=== PATIENT | male | born 1940 | race Caucasian/White ===

== ENCOUNTER 2019-06-05 01:06 | Inpatient (IN) | payer OTHER ==
[2019-06-05] MEDS ORDERED: PROVENTIL IH ONE ×2 (01:20→01:22)
--- NOTE | 2019-06-05 01:28 | Emergency Department Report ---
ED General Adult HPI - General Chief complaint: Abdominal Pain Stated complaint: SOB Time Seen by Provider: 06/05/19 01:25 Source: EMS Mode of arrival: Stretcher Limitations: Language Barrier - History of Present Illness Initial comments: 78-year-old male with history of diabetes and hypertension and pacemaker placement presents with complaint of abdominal pain. Patient also has secondary complaint of shortness of breath. 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 Family also describes orthopnea. Patient has had a dry nonproductive cough. Patient also complains of abdominal pain. Patient also has a history of prostate cancer. Patient complains of dysuria. Patient was brought in by EMS was noted to be 91% on a nonrebreather. 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 Patient is currently on Xarelto therapy as well. - Related Data Allergies Allergy/AdvReac Type Severity Reaction Status Date / Time No Known Allergies Allergy Verified 06/05/19 01:32 ED Review of Systems ROS: Stated complaint: SOB Other details as noted in HPI Constitutional: denies: chills, fever Eyes: denies: eye pain, eye discharge, vision change ENT: denies: ear pain, throat pain Respiratory: denies: cough, shortness of breath, wheezing Cardiovascular: denies: chest pain, palpitations Endocrine: no symptoms reported Gastrointestinal: abdominal pain Genitourinary: denies: urgency, dysuria Musculoskeletal: denies: back pain, joint swelling, arthralgia Skin: denies: rash, lesions Neurological: denies: headache, weakness, paresthesias Psychiatric: denies: anxiety, depression Hematological/Lymphatic: denies: easy bleeding, easy bruising ED Past Medical Hx - Past Medical History Previous Medical History?: Yes Hx Hypertension: Yes Hx Diabetes: Yes - Surgical History Past Surgical History?: Yes Additional Surgical History: pacemaker - Social History Smoking Status: Never Smoker ED Physical Exam - General Limitations: Language Barrier General appearance: alert, other (uncomfortable; dehydrated) - Head Head exam: Present: atraumatic, normocephalic - Eye Eye exam: Present: normal appearance - ENT ENT exam: Present: mucous membranes dry - Neck Neck exam: Present: normal inspection - Respiratory Respiratory exam: Present: rales. Absent: respiratory distress - Cardiovascular Cardiovascular Exam: Present: regular rate, normal rhythm. Absent: systolic murmur, diastolic murmur, rubs, gallop - GI/Abdominal GI/Abdominal exam: Present: soft, tenderness (noted diffusely), normal bowel sounds. Absent: guarding, rebound - Rectal Rectal exam: Present: deferred - Extremities Exam Extremities exam: Present: normal inspection - Back Exam Back exam: Present: normal inspection - Neurological Exam Neurological exam: Present: alert, oriented X3 - Psychiatric Psychiatric exam: Present: normal affect, normal mood - Skin Skin exam: Present: warm, dry, intact, normal color. Absent: rash ED Course Vital Signs 06/05/19 06/05/19 06/05/19 00:50 01:00 01:09 Temperature 99.1 F Pulse Rate 77 82 83 Pulse Rate [ Anterior] Respiratory 38 H 39 H 20 Rate Respiratory Rate [Anterior] Blood Pressure 186/105 O2 Sat by Pulse 74 L 89 92 Oximetry 06/05/19 06/05/19 06/05/19 01:30 01:33 01:37 Temperature Pulse Rate 85 79 Pulse Rate [ 79 Anterior] Respiratory 34 H 32 H Rate Respiratory 32 H Rate [Anterior] Blood Pressure 158/93 176/103 O2 Sat by Pulse 95 100 Oximetry 06/05/19 06/05/19 06/05/19 02:01 02:31 03:01 Temperature Pulse Rate 83 75 78 Pulse Rate [ Anterior] Respiratory 30 H 26 H 28 H Rate Respiratory Rate [Anterior] Blood Pressure 176/103 176/103 176/103 O2 Sat by Pulse 100 100 97 Oximetry 06/05/19 04:37 Temperature Pulse Rate 83 Pulse Rate [ Anterior] Respiratory 22 Rate Respiratory Rate [Anterior] Blood Pressure O2 Sat by Pulse 96 Oximetry ED Medical Decision Making - Lab Data Result diagrams: 06/05/19 01:36 06/05/19 01:36 - EKG Data -: EKG Interpreted by Vt EKG shows normal: sinus rhythm Rate: normal - EKG Data Interpretation: other (Left bundle branch block) - Medical Decision Making Upon arrival in emergency Department patient received BiPAP therapy as well as albuterol any improvement of his aeration. Patient also received Lasix therapy and nitroglycerin therapy sublingually while in the emergency department. Patient to be admitted to the hospitalist service for continued management and treatment. - Differential Diagnosis Arrythmia; NSTEMI; STEMI; Anemia Critical Care Time: Yes Critical care time in (mins) excluding proc time.: 40 Critical care attestation.: If time is entered above; I have spent that time in minutes in the direct care of this critically ill patient, excluding procedure time. Critical Care time does not include time spent on separately billable procedures. Critical Care time includes time spent on direct bedside care, frequent reassessments, and physician consultation. ED Disposition Clinical Impression: CHF exacerbation, Prostatic hypertrophy, Acute pulmonary edema, Hydroureteronephrosis Disposition: OP ADMIT IP TO THIS HOSP Is pt being admited?: Yes Does the pt Need Aspirin: No Condition: Fair Instructions: Pulmonary Edema (ED) Time of Disposition: 05:11
[2019-06-05 01:59] LABS: Basophils % (Auto) 0.3 % (0.0-1.8); Eosinophils # (Auto) 0.1 K/mm3 (0.0-0.4); Eosinophils % (Auto) 1.1 % (0.0-4.3); Hemoglobin 10.9 gm/dl (11.8-15.2); Lymphocytes # (Auto) 1.8 K/mm3 (1.2-5.4); Lymphocytes % (Auto) 22.8 % (13.4-35.0); Mean Corpuscular HGB Conc 32 % (32-34); Mean Corpuscular Volume 75 fl (84-94); Monocytes # (Auto) 0.6 K/mm3 (0.0-0.8); Monocytes % (Auto) 7.3 % (0.0-7.3); Platelet Count 205 K/mm3 (140-440); Red Blood Count 4.52 M/mm3 (3.65-5.03); Red Cell Distribution Width 18.3 % (13.2-15.2)
[2019-06-05 02:05] LABS: Calcium 9.3 mg/dL (8.4-10.2)
--- NOTE | 2019-06-05 02:22 | XRay Report ---
CHEST 1 VIEW 06/05/2019 1:24 AM INDICATION / CLINICAL INFORMATION: Chest Pain. COMPARISON: None available. FINDINGS: SUPPORT DEVICES: A dual lead left pacemaker is in good position. HEART / MEDIASTINUM: No significant abnormality. LUNGS / PLEURA: There is a small to moderate right pleural effusion and a small left pleural effusion with associated atelectasis. There is probable mild pulmonary edema. No pneumothorax. ADDITIONAL FINDINGS: No significant additional findings. IMPRESSION: Bilateral pleural effusions, right greater than left, with associated atelectasis and probable mild p ulmonary edema. Signer Name: Henri Ramirez MD Signed: 06/05/2019 2:17 AM Workstation Name: [id number]
[2019-06-05] MEDS ORDERED: NITROSTAT SL STA (02:54)
[2019-06-05] MEDS ORDERED: LASIX IV ONE (02:54)
--- NOTE | 2019-06-05 03:56 | Cat Scan Report ---
CT ABDOMEN AND PELVIS WITHOUT CONTRAST HISTORY: Generalized abdominal pain and distention. COMPARISON: No relevant prior imaging study available. TECHNIQUE: Axial, coronal and sagittal CT imaging of the abdomen and pelvis was performed without co ntrast. Lack of intravenous contrast limits evaluation of the vascular and solid organs. All CT sca ns at this location are performed using CT dose reduction for ALARA by means of automated exposure co ntrol. FINDINGS: LOWER CHEST: There is a small to moderate right pleural effusion and a small left pleural effusion wi th associated atelectasis. The heart is mildly to moderately enlarged without a pericardial effusion. Pacing leads are partially visualized and appear unremarkable. LIVER: Mildly enlarged with a probable cyst located posteriorly and inferiorly along the right hepati c lobe measuring 1 cm. No additional significant abnormality. BILIARY: No significant abnormality. PANCREAS: No significant abnormality. SPLEEN: Normal in size with an indeterminate hypodensity along the upper pole measuring 1.1 cm on anita ge 41 of series 301. ADRENALS: No significant abnormality. KIDNEYS AND URETERS: Moderate to severe hydroureteronephrosis is noted bilaterally without an obstruc tive mass or stone. There is a probable simple appearing cyst along the left lower renal pole posteri porfirio measuring up to 2.3 cm. GI TRACT: No significant abnormality of the stomach or small bowel. There is generalized colonic dive rticulosis without evidence of diverticulitis. Unremarkable appendix. PERITONEUM: No free fluid. No free air. No fluid collection. LYMPH NODES: No significant adenopathy. VASCULATURE: The aorta is normal in caliber with mild aortoiliac atherosclerosis. URINARY BLADDER: Severely distended without an intraluminal abnormality. REPRODUCTIVE ORGANS: The prostate gland is enlarged and measures 5.4 x 5.3 cm. ADDITIONAL FINDINGS: None. SKELETAL SYSTEM: There are degenerative changes of the spine. No acute abnormality is seen. IMPRESSION: 1. Moderate to severe hydroureteronephrosis in the setting of marked bladder distention likely repres ents bladder outlet obstruction, possibly due to prostatic hypertrophy. 2. Additional findings as above. Signer Name: Henri Ramirez MD Signed: 06/05/2019 3:51 AM Workstation Name: [id number]
[2019-06-05 04:23] LABS: Bacteria,Urine 1+ /HPF (Negative); Bilirubin,Urine NEG (Negative); Blood,Urine NEG (Negative); Color,Urine Straw (Yellow); Protein,Urine <15 mg/dL mg/dL (Negative); RBC,Urine < 1.0 /HPF (0.0-6.0); Urobilinogen,Urine < 2.0 mg/dL (<2.0); WBC,Urine < 1.0 /HPF (0.0-6.0)
[2019-06-05] MEDS ORDERED: D50W (25GM) Syringe IV PRN (07:00)
[2019-06-05] MEDS ORDERED: TYLENOL PO PRN (07:02)
[2019-06-05] MEDS ORDERED: NITROSTAT SL PRN (07:02)
[2019-06-05] MEDS ORDERED: ZOFRAN IV PRN (07:16)
[2019-06-05] MEDS ORDERED: MORPHINE IV PRN (07:17)
[2019-06-05] MEDS: DUONEB *Not for PRN Use IH SCH ×4 (07:45→19:41)
--- NOTE | 2019-06-05 09:22 | History and Physical Report ---
CHIEF COMPLAINT: Shortness of breath. HISTORY OF PRESENT ILLNESS: The patient is a 78-year-old male who is visiting [place] from [place] of the country and has shortness of breath going on for few days. There is associated history of orthopnea and history of nonproductive cough. The patient also complained about abdominal pain and difficulty urinating. There was no history of fever or chills and no history of nausea or vomiting. The patient also denied history of chest pain and was brought by EMS with O2 sat running about 91% on nonrebreather. The patient was evaluated at a hospital in [place], [place] where he had a pacemaker placed due to third degree heart block and also the patient was started on Xarelto because of irregular heartbeat, but the patient's family say that they moved over to [place] nearly and the patient's symptoms just started. PAST MEDICAL HISTORY: Pertinent for hypertension, diabetes mellitus, third degree heart block and benign prostatic hypertrophy. PAST SURGICAL HISTORY: Pertinent for pacemaker placement. FAMILY HISTORY: Noncontributory. SOCIAL HISTORY: The patient does not smoke, does not drink alcohol and does not use illicit drugs. MEDICATIONS: The patient's home medications are not known at this time. ALLERGIES: There are no known drug allergies. REVIEW OF SYSTEMS: CONSTITUTIONAL: There is no fever, no chills, no diaphoresis. HEENT: There is no headache or sore throat. CARDIOVASCULAR SYSTEM: There is no chest pain, but there is orthopnea. RESPIRATORY SYSTEM: There is shortness of breath and there is dry cough. GASTROINTESTINAL SYSTEM: There is no nausea, no vomiting, no abdominal pain, diarrhea or constipation. NEUROLOGICAL SYSTEM: There is no numbness, no dizziness, no altered mental status. MUSCULOSKELETAL SYSTEM: There is no joint pain or swelling. DERMATOLOGICAL SYSTEM: There is no skin rash or itching. GENITOURINARY SYSTEM: There is history of painful micturition and dysuria, but no hematuria or flank pain. Rest of system review is normal. PHYSICAL EXAMINATION: GENERAL: At the time of exam, the patient was found to be alert, oriented x 3 and in mild to moderate distress due to shortness of breath. VITAL SIGNS: At the initial time of presentation showed temperature of 99.1 degrees Fahrenheit, pulse of 77, respiration 38, blood pressure 186/105. Initial O2 sat of 74%, which later came on to 97%-100% on oxygen on BiPAP. HEENT: Showed pupils to be equal, round, reactive to light and accommodating. The patient has a BiPAP mask in place. NECK: Supple with no JVD or carotid bruit. CARDIOVASCULAR SYSTEM: Showed first and second heart sounds with irregularly irregular rhythm. RESPIRATORY SYSTEM: Showed reduced air entry on both sides of the lung with bibasilar rales. GASTROINTESTINAL SYSTEM: Showed abdomen to be full, soft, nontender with no organomegaly or rigidity. NEUROLOGICAL: Showed no focal deficit. MUSCULOSKELETAL SYSTEM: Showed no joint swelling or tenderness. DERMATOLOGICAL SYSTEM: Showed no skin rash. GENITOURINARY SYSTEM: Showing no costovertebral angle tenderness. PERTINENT LABORATORY DATA AND IMAGING STUDIES: The patient had chest x-ray done that shows bilateral pleural effusion with right greater than left with associated atelectasis and mild pulmonary edema. The patient has also CT of the abdomen and pelvis without contrast and shows moderate to severe hydroureteronephrosis in the setting of marked bladder distension likely representing bladder outlet obstruction possibly due to prostatic hypertrophy according to the radiologist. The patient has CBC done with normal white count, low hemoglobin of 10.9 and low hematocrit of 34 with low MCV of 75 with rest of CBC being unremarkable. The patient's chemistry showed elevated glucose level of 291 with elevated total CPK of 438 and normal troponin level and high brain natriuretic peptide level of 6215. The patient's urinalysis was unremarkable. DIAGNOSES: 1. Congestive heart failure. 2. Bladder outlet obstruction due to benign prostatic hyperplasia. PLAN OF CARE: 1. The patient will be admitted to telemetry as inpatient. 2. The patient will have cardiac enzyme including troponin and total CPK and CK-MB checked every 6 hours x 2 more levels. 3. The patient will have Cardiology consult with Dr. Karan Bellamy for management of CHF in the setting of pacemaker placement. 4. The patient will be on IV Lasix 40 mg daily. 5. The patient will be on nitro paste half inch to the anterior chest wall q.i.d. and will also be on Nitrostat 0.4 mg every 5 minutes as needed for breakthrough chest pain. 6. The patient will be on Accu-Chek a.c. and at bedtime followed by low-dose sliding scale using regular insulin coverage. 7. The patient will be on DuoNeb nebulizer q.i.d. 8. The patient will be on Tylenol 650 mg by mouth every 4 hours as needed for fever and headache. 9. The patient will be on IV Zofran 4 mg every 8 hours as needed for nausea and vomiting and IV morphine 2 mg every 4 hours as needed for pain. 10. The patient will continue BiPAP that was started in the Emergency Room until reviewed by the attending physician. 11. The patient's diet will be consistent carbohydrate and 2 g sodium diet. 12. The patient will be on heparin 5000 units subcutaneous q. 12 hours for DVT prophylaxis. 13. Patient needs urology consult but there is no urology consult over the weekend JOB# [id number] OCN/TRACEY IZAGUIRRE
[2019-06-05] MEDS ORDERED: ZESTRIL PO SCH (10:00)
[2019-06-05] MEDS: HumuLIN R SUB-Q SCH ×4 (10:41→21:55)
[2019-06-05] MEDS: NITRO-BID 2% TP SCH ×3 (10:57→19:38)
--- NOTE | 2019-06-05 11:30 | Consultation ---
History of Present Illness Consult date: 06/05/19 Consult reason: congestive heart failure History of present illness: The patient is a 78-year-old man who is here visiting from [facility]. He has a history of chronic hypertension, admittedly poorly controlled on hydrochlorothiazide, amlodipine and losartan. He has a history of syncope and heart block, treated a year ago in [facility] with a dual chamber pacemaker. No history of coronary artery disease, myocardial infarction all previous congestive heart failure. He presents to the hospital now with shortness of breath and uncontrolled hypertension. Blood pressure was 186/105. Chest x-ray demonstrated moderate in terstitial edema, moderate to large right pleural effusion. There is no chest pain, no palpitations, no syncope. ECG is interventricular paced rhythm. Past History Past Medical History: hypertension Past Surgical History: Other (pacemaker) Medications and Allergies Allergies Allergy/AdvReac Type Severity Reaction Status Date / Time No Known Allergies Allergy Verified 06/05/19 01:32 Active Meds: Active Medications Acetaminophen (Tylenol) 650 mg PO Q4H PRN PRN Reason: Headache Albuterol/Ipratropium (Duoneb *Not For Prn Use*) 1 ampul IH QIDRT [facility] Last Admin: 06/05/19 07:45 Dose: 1 ampul Documented by: Dextrose (D50w (25gm) Syringe) 50 ml IV PRN PRN PRN Reason: Hypoglycemia Furosemide (Lasix) 40 mg IV QDAY [facility] Heparin Sodium (Porcine) (Heparin) 5,000 unit SUB-Q Q12HR [facility] Insulin Human Regular (Humulin R) 0 units SUB-Q BAIRON; Protocol Last Admin: 06/05/19 10:41 Dose: 4 units Documented by: Insulin Human Regular (Humulin R) 0 units SUB-Q QHS [facility]; Protocol Lisinopril (Zestril) 5 mg PO QDAY [facility] Last Admin: 06/05/19 10:57 Dose: 5 mg Documented by: Morphine Sulfate (Morphine) 2 mg IV Q4H PRN PRN Reason: Pain, Moderate (4-6) Nitroglycerin (Nitro-Bid 2%) 0.5 inch TP QIDNTG BAIRON; Protocol Last Admin: 06/05/19 10:57 Dose: 0.5 inch Documented by: Nitroglycerin (Nitrostat) 0.4 mg SL .Q5MIN PRN PRN Reason: Chest Pain Ondansetron HCl (Zofran) 4 mg IV Q8H PRN PRN Reason: Nausea And Vomiting Review of Systems Cardiovascular: shortness of breath, no chest pain, no orthopnea, no palpitations, no rapid/irregular heart beat, no edema, no syncope, no lightheadedness Physical Examination Vital Signs Pulse Resp Pulse Ox 77 38 H 74 L 06/05/19 00:50 06/05/19 00:50 06/05/19 00:50 General appearance: no acute distress HEENT: Positive: PERRL Neck: Positive: neck supple Cardiac: Positive: Reg Rate and Rhythm Lungs: Positive: Decreased Breath Sounds Neuro: Positive: Grossly Intact Abdomen: Positive: Soft Male genitourinary: Positive: deferred Skin: Positive: Clear Extremities: Absent: edema Results 06/05/19 01:36 06/05/19 01:36 CBC 06/05/19 Range/Units 01:36 WBC 7.8 (4.5-11.0) K/mm3 RBC 4.52 (3.65-5.03) M/mm3 Hgb 10.9 L (11.8-15.2) gm/dl Hct 34.0 L (35.5-45.6) % Plt Count 205 (140-440) K/mm3 Lymph # 1.8 (1.2-5.4) K/mm3 Andrews # 0.6 (0.0-0.8) K/mm3 Eos # 0.1 (0.0-0.4) K/mm3 Baso # 0.0 (0.0-0.1) K/mm3 Comprehensive Metabolic Panel 06/05/19 Range/Units 01:36 Sodium 143 (137-145) mmol/L Potassium 3.7 (3.6-5.0) mmol/L Chloride 104.8 (98-107) mmol/L Carbon Dioxide 24 (22-30) mmol/L BUN 11 (9-20) mg/dL Creatinine 1.5 (0.8-1.5) mg/dL Glucose 291 H (75-100) mg/dL Calcium 9.3 (8.4-10.2) mg/dL EKG interpretations - Telemetry EKG Rhythm: Paced Assessment and Plan - Patient Problems (1) Acute pulmonary edema Current Visit: Yes Status: Acute Plan to address problem: Patient's heart failure extubation will be treated with diuretics, an echocardiogram for left ventricular function assessment. Probable etiology of heart failure is chronic uncontrolled hypertension. A predischarge Persantin thallium stress test will be indicated for ischemia assessment once heart failure, pleural effusion resolved. (2) Pleural effusion Current Visit: Yes Status: Acute Plan to address problem: Recommend pulmonary evaluation and assessment of right pleural effusion. (3) Cardiac pacemaker Current Visit: Yes Status: Acute Plan to address problem: We will get the pacemaker interrogation with [facility] on Friday. (4) Uncontrolled hypertension Current Visit: Yes Status: Acute Plan to address problem: Aggressive blood pressure management, with diuretics, losartan, switch amlodipine to Procardia XL for better efficacy. Additional medications as indicated after LV function assessment by echocardiogram.
[2019-06-05 13:08] LABS: Creatine Kinase MB 3.2 ng/mL (0.0-4.0)
[2019-06-05] MEDS: HEPARIN SUB-Q SCH ×2 (13:53→21:54)
--- NOTE | 2019-06-05 14:21 | Event Note ---
Date: 06/05/19 Patient is 78 yo with abdominal pain, CHF, Urinary retention s/p parnell placed, pleural effusion. I have seen and examined him.
[2019-06-05] MEDS: COZAAR PO SCH (14:31)
[2019-06-05] MEDS: PROCARDIA XL PO SCH (14:33)
[2019-06-05 19:26] LABS: Creatine Kinase MB 2.8 ng/mL (0.0-4.0)
[2019-06-05] MEDS: ROBITUSSIN PO PRN (20:15)
[2019-06-06] MEDS: NITRO-BID 2% TP SCH ×4 (05:32→17:32)
[2019-06-06 06:02] LABS: Hematocrit 34.2 % (35.5-45.6); Hemoglobin 11.1 gm/dl (11.8-15.2); Mean Corpuscular HGB Conc 33 % (32-34); Mean Corpuscular Volume 74 fl (84-94); Platelet Count 220 K/mm3 (140-440); Red Blood Count 4.64 M/mm3 (3.65-5.03); Red Cell Distribution Width 17.8 % (13.2-15.2)
[2019-06-06 06:33] LABS: Calcium 9.6 mg/dL (8.4-10.2)
[2019-06-06] MEDS ORDERED: K-DUR PO NR (06:53)
--- NOTE | 2019-06-06 06:56 | Event Note ---
Date: 06/06/19 Potassium 2.7 this morning. Ordered IV potassium 20Meq, and po Potassium 40Meq. Will need to follow up potassium and magnesium labs.
[2019-06-06] MEDS: HumuLIN R SUB-Q SCH ×4 (07:30→22:43)
[2019-06-06] MEDS: DUONEB *Not for PRN Use IH SCH ×4 (08:06→20:00)
[2019-06-06] MEDS: COZAAR PO SCH (09:41)
[2019-06-06] MEDS: PROCARDIA XL PO SCH (09:42)
[2019-06-06] MEDS: LASIX IV SCH (09:42)
[2019-06-06] MEDS: HEPARIN SUB-Q SCH ×2 (09:44→22:41)
[2019-06-06] MEDS: KCL 10MEQ/100ML 10 MEQ/100 ML BAG IV SCH ×2 (10:10→11:18)
[2019-06-06] MEDS ORDERED: PNEUMOVAX 23 IM ONE (12:00)
--- NOTE | 2019-06-06 12:38 | Progress Note ---
Assessment and Plan Assessment and plan: Acute resp failure due to pulmonary edema and pleural effusions Supplemental Oxygen Consult Pulmunology Acute systolic CHF EF 35-40% Cardiology following Alexx Gomez Bilateral pleural effusion R > L May be due to CHF Consult Pulm, Cardiology Urinary retention due to BPH Francois placed in ED Will consult Urology Marked hydroureteronephosis and bladder distension on CT Abd Hydroureteronephrosis Will consult Urology History of 3rd degree AV block s/p pacemaker placement Hypokalemia replace and recheck Hypertension monitor BP Full code status History Interval history: Shortness of breath Abdominal pain Hospitalist Physical - Physical exam Narrative exam: Gen: Not in acute distress, lying in bed, HEENT: Normocephalic, atraumatic Neck: supple, no JVD Heart: S1 and S2 reg, no murmurs, rubs or gallop Lungs: Bilateral basal crackles, decreased breath sound bases Abd: soft, non tender, non distended, normal BS Ext: no edema, no clubbing, no cyanosis Neuro: Awake,alert,oriented,moves all ext : Francois catheter in - Constitutional Vitals: Temp Pulse Resp BP Pulse Ox 98.0 F 68 20 125/67 94 06/06/19 04:14 06/06/19 10:00 06/06/19 08:10 06/06/19 05:32 06/06/19 09:57 General appearance: Present: no acute distress Results - Labs CBC & Chem 7: 06/06/19 04:46 06/06/19 04:46 Labs: Laboratory Last Values WBC 7.2 K/mm3 (4.5-11.0) 06/06/19 04:46 RBC 4.64 M/mm3 (3.65-5.03) 06/06/19 04:46 Hgb 11.1 gm/dl (11.8-15.2) L 06/06/19 04:46 Hct 34.2 % (35.5-45.6) L 06/06/19 04:46 MCV 74 fl (84-94) L 06/06/19 04:46 MCH 24 pg (28-32) L 06/06/19 04:46 MCHC 33 % (32-34) 06/06/19 04:46 RDW 17.8 % (13.2-15.2) H 06/06/19 04:46 Plt Count 220 K/mm3 (140-440) 06/06/19 04:46 Lymph % (Auto) 22.8 % (13.4-35.0) 06/05/19 01:36 Cache % (Auto) 7.3 % (0.0-7.3) 06/05/19 01:36 Eos % (Auto) 1.1 % (0.0-4.3) 06/05/19 01:36 Baso % (Auto) 0.3 % (0.0-1.8) 06/05/19 01:36 Lymph # 1.8 K/mm3 (1.2-5.4) 06/05/19 01:36 Cache # 0.6 K/mm3 (0.0-0.8) 06/05/19 01:36 Eos # 0.1 K/mm3 (0.0-0.4) 06/05/19 01:36 Baso # 0.0 K/mm3 (0.0-0.1) 06/05/19 01:36 Seg Neutrophils % 68.5 % (40.0-70.0) 06/05/19 01:36 Seg Neutrophils # 5.3 K/mm3 (1.8-7.7) 06/05/19 01:36 Sodium 143 mmol/L (137-145) 06/06/19 04:46 Potassium 2.7 mmol/L (3.6-5.0) L* D 06/06/19 04:46 Chloride 100.6 mmol/L (98-107) 06/06/19 04:46 Carbon Dioxide 27 mmol/L (22-30) 06/06/19 04:46 18 mmol/L 06/06/19 04:46 BUN 18 mg/dL (9-20) 06/06/19 04:46 1.3 mg/dL (0.8-1.5) 06/06/19 04:46 Estimated GFR 54 ml/min 06/06/19 04:46 14 % 06/06/19 04:46 Glucose 138 mg/dL (75-100) H 06/06/19 04:46 POC Glucose 264 (70-105) H 06/06/19 11:41 Calcium 9.6 mg/dL (8.4-10.2) 06/06/19 04:46 446 units/L (55-170) H 06/05/19 18:28 CK-MB (CK-2) 2.8 ng/mL (0.0-4.0) 06/05/19 18:28 CK-MB (CK-2) Rel Index 0.6 (0-4) 06/05/19 18:28 0.013 ng/mL (0.00-0.029) 06/05/19 18:28 NT-Pro-B Natriuret Pep 6215 pg/mL (0-900) H 06/05/19 03:00 Straw (Yellow) 06/05/19 03:30 Clear (Clear) 06/05/19 03:30 5.0 (5.0-7.0) 06/05/19 03:30 Ur Specific [place]es 1.008 (1.003-1.030) 06/05/19 03:30 <15 mg/dl mg/dL (Negative) 06/05/19 03:30 50 mg/dL (Negative) 06/05/19 03:30 Neg mg/dL (Negative) 06/05/19 03:30 Neg (Negative) 06/05/19 03:30 Neg (Negative) 06/05/19 03:30 Neg (Negative) 06/05/19 03:30 < 2.0 mg/dL (<2.0) 06/05/19 03:30 Ur Leukocyte Esterase Neg (Negative) 06/05/19 03:30 < 1.0 /HPF (0.0-6.0) 06/05/19 03:30 < 1.0 /HPF (0.0-6.0) 06/05/19 03:30 U Epithel Cells (Auto) < 1.0 /HPF (0-13.0) 06/05/19 03:30 1+ /HPF (Negative) 06/05/19 03:30 Active Medications - Current Medications Current Medications: Generic Name Dose Route Start Last Admin Trade Name Freq PRN Reason Stop Dose Admin Acetaminophen 650 mg 06/05/19 07:02 Tylenol PO Q4H PRN Headache Albuterol/Ipratropium 1 ampul 06/05/19 08:00 06/06/19 08:06 Duoneb *Not For Prn Use* IH 1 ampul QIDRT [facility] Administration Dextrose 50 ml 06/05/19 07:00 D50w (25gm) Syringe IV PRN PRN Hypoglycemia Furosemide 40 mg 06/06/19 10:00 06/06/19 09:42 Lasix IV 40 mg QDAY [facility] Administration Guaifenesin 200 mg 06/05/19 19:59 06/05/19 20:15 Robitussin PO 200 mg Q4H PRN Administration Cough Heparin Sodium (Porcine) 5,000 unit 06/05/19 10:00 06/06/19 09:44 Heparin SUB-Q 5,000 unit Q12HR [facility] Administration Insulin Human Regular 0 units 06/05/19 07:30 06/06/19 07:30 Humulin R SUB-Q 1 units AC [facility] Administration Protocol Insulin Human Regular 0 units 06/05/19 22:00 06/05/19 21:55 Humulin R SUB-Q 3 units QHS [facility] Administration Protocol Losartan Potassium 100 mg 06/05/19 12:00 06/06/19 09:41 Cozaar PO 100 mg QDAY [facility] Administration Morphine Sulfate 2 mg 06/05/19 07:17 Morphine IV Q4H PRN Pain, Moderate (4-6) Nifedipine 60 mg 06/05/19 12:00 06/06/19 09:42 Procardia Xl PO 60 mg QDAY [facility] Administration Nitroglycerin 0.5 inch 06/05/19 10:00 06/06/19 09:42 Nitro-Bid 2% TP 0.5 inch QIDNTG [facility] Administration Protocol Nitroglycerin 0.4 mg 06/05/19 07:02 Nitrostat SL .Q5MIN PRN Chest Pain Ondansetron HCl 4 mg 06/05/19 07:16 Zofran IV Q8H PRN Nausea And Vomiting
--- NOTE | 2019-06-06 14:18 | Consultation ---
History of Present Illness Consult date: 06/06/19 Requesting physician: MELA ANDRES Reason for consult: pleural effusion History of present illness: 78 y/o male presents with abdominal distention and abdominal pain. CT abd shows bilateral hydronephrosis and right sided pleural effusion. Parnell placed and 1900 came back immediately. Pulmonary asked to see because of effusion. Past History Past Medical History: hypertension Past Surgical History: Other (pacemaker) Medications and Allergies Allergies Allergy/AdvReac Type Severity Reaction Status Date / Time No Known Allergies Allergy Verified 06/05/19 01:32 Active Meds: Active Medications Acetaminophen (Tylenol) 650 mg PO Q4H PRN PRN Reason: Headache Albuterol/Ipratropium (Duoneb *Not For Prn Use*) 1 ampul IH QIDRT [facility] Last Admin: 06/06/19 08:06 Dose: 1 ampul Documented by: Dextrose (D50w (25gm) Syringe) 50 ml IV PRN PRN PRN Reason: Hypoglycemia Furosemide (Lasix) 40 mg IV QDAY [facility] Last Admin: 06/06/19 09:42 Dose: 40 mg Documented by: Guaifenesin (Robitussin) 200 mg PO Q4H PRN PRN Reason: Cough Last Admin: 06/05/19 20:15 Dose: 200 mg Documented by: Heparin Sodium (Porcine) (Heparin) 5,000 unit SUB-Q Q12HR [facility] Last Admin: 06/06/19 09:44 Dose: 5,000 unit Documented by: Insulin Human Regular (Humulin R) 0 units SUB-Q AC [facility]; Protocol Last Admin: 06/06/19 12:47 Dose: 3 units Documented by: Insulin Human Regular (Humulin R) 0 units SUB-Q QHS [facility]; Protocol Last Admin: 06/05/19 21:55 Dose: 3 units Documented by: Losartan Potassium (Cozaar) 100 mg PO QDAY [facility] Last Admin: 06/06/19 09:41 Dose: 100 mg Documented by: Morphine Sulfate (Morphine) 2 mg IV Q4H PRN PRN Reason: Pain, Moderate (4-6) Nifedipine (Procardia Xl) 60 mg PO QDAY [facility] Last Admin: 06/06/19 09:42 Dose: 60 mg Documented by: Nitroglycerin (Nitro-Bid 2%) 0.5 inch TP QIDNTG [facility]; Protocol Last Admin: 06/06/19 09:42 Dose: 0.5 inch Documented by: Nitroglycerin (Nitrostat) 0.4 mg SL .Q5MIN PRN PRN Reason: Chest Pain Ondansetron HCl (Zofran) 4 mg IV Q8H PRN PRN Reason: Nausea And Vomiting Review of Systems All systems: negative Physical Examination Vital signs: Vital Signs Pulse Resp Pulse Ox 77 38 H 74 L 06/05/19 00:50 06/05/19 00:50 06/05/19 00:50 General appearance: no acute distress, alert Eyes: non-icteric ENT: oropharynx moist Neck: supple Effort: normal Ascultation: Bilateral: clear Percussion: Bilateral: not dull Tactile fremitus: Bilateral: normal Cardiovascular: regular rate and rhythm Gastrointestinal: normoactive bowel sounds, soft, non-tender Extremities: no edema normal mental status Results - Laboratory Findings CBC and BMP: 06/06/19 04:46 06/06/19 12:17 Abnormal lab findings: Abnormal Labs 06/05/19 06/05/19 06/05/19 01:36 01:36 03:00 Hgb 10.9 L Hct 34.0 L MCV 75 L MCH 24 L RDW 18.3 H Potassium Glucose 291 H POC Glucose Total Creatine Kinase 438 H NT-Pro-B Natriuret Pep 6215 H 06/05/19 06/05/19 06/05/19 10:17 12:23 16:42 Hgb Hct MCV MCH RDW Potassium Glucose POC Glucose 303 H 276 H Total Creatine Kinase 487 H NT-Pro-B Natriuret Pep 06/05/19 06/05/19 06/06/19 18:28 21:04 04:46 Hgb 11.1 L Hct 34.2 L MCV 74 L MCH 24 L RDW 17.8 H Potassium Glucose POC Glucose 259 H Total Creatine Kinase 446 H NT-Pro-B Natriuret Pep 06/06/19 06/06/19 06/06/19 04:46 08:01 11:41 Hgb Hct MCV MCH RDW Potassium 2.7 L* D Glucose 138 H POC Glucose 155 H 264 H Total Creatine Kinase NT-Pro-B Natriuret Pep 06/06/19 12:17 Hgb Hct MCV MCH RDW Potassium 3.0 L Glucose POC Glucose Total Creatine Kinase NT-Pro-B Natriuret Pep - Diagnostic Findings Chest x-ray: image reviewed (Repeat CXR shows improvement in right sided effusion) Assessment and Plan 78 y/o male with right sided pleural effusion in the setting of bilateral hydronephrosis 1. Repeat CXR to see if effusion has improved with parnell placement and it appears that it has. No current indication for thoracentesis. 2. Will follow up again tomorrow but most likely will sign off as effusion is getting better with resolution of urologic obstruction. 3. Wean Fio2 for sats >88%
--- NOTE | 2019-06-06 14:42 | XRay Report ---
CHEST 1 VIEW INDICATION / CLINICAL INFORMATION: pleural effusion. COMPARISON: 06/05/2019 FINDINGS: SUPPORT DEVICES: Pacemaker device is stable in position. HEART / MEDIASTINUM: No significant abnormality. LUNGS / PLEURA: Bilateral pleural effusions are present. There is a small to moderate right pleural e ffusion and a very small left pleural effusion present. The right pleural effusion appears slightly d ecreased in amount since yesterday's exam. Previously noted mild interstitial pulmonary edema has imp roved and nearly completely resolved. No pneumothorax. ADDITIONAL FINDINGS: No significant additional findings. IMPRESSION: 1. Improving interstitial pulmonary edema. 2. Small bilateral pleural effusions are present, larger on the right. The right pleural effusion is decreased in size. Signer Name: Quyen Borges MD Signed: 06/06/2019 2:37 PM Workstation Name: [id number]
--- NOTE | 2019-06-06 15:10 | Progress Note ---
Assessment and Plan - Patient Problems (1) Acute pulmonary edema Current Visit: Yes Status: Acute Plan to address problem: Patient's heart failure extubation will be treated with diuretics, an echocardiogram for left ventricular function assessment. Probable etiology of heart failure is chronic uncontrolled hypertension. A predischarge Persantin thallium stress test will be indicated for ischemia assessment once heart failure, pleural effusion resolved. (2) Pleural effusion Current Visit: Yes Status: Acute Plan to address problem: Recommend pulmonary evaluation and assessment of right pleural effusion. (3) Cardiac pacemaker Current Visit: Yes Status: Acute Plan to address problem: We will get the pacemaker interrogation with [facility] on Friday. (4) Uncontrolled hypertension Current Visit: Yes Status: Acute Plan to address problem: Blood pressure has been normalized, on current medical therapy 125 systolic. Subjective Date of service: 06/06/19 Interval history: Patient looks alert feels better, no new cardiac complaints. Chest x-ray shows improved aeration of the right lung base. Objective Vital Signs Temp Pulse Pulse Pulse Pulse Resp Resp 06/06/19 10:00 68 06/06/19 09:57 06/06/19 08:10 68 20 06/06/19 05:32 68 06/06/19 04:14 98.0 F 60 18 06/05/19 23:46 98.0 F 54 L 18 06/05/19 22:19 80 18 06/05/19 19:48 73 06/05/19 19:46 06/05/19 19:41 80 06/05/19 19:19 98.6 F 75 18 06/05/19 18:05 97.2 F L 70 69 18 06/05/19 16:37 18 06/05/19 15:32 Resp BP Pulse Ox 06/06/19 10:00 06/06/19 09:57 94 06/06/19 08:10 06/06/19 05:32 125/67 06/06/19 04:14 125/67 95 06/05/19 23:46 119/68 94 06/05/19 22:19 93 06/05/19 19:48 06/05/19 19:46 93 06/05/19 19:41 18 06/05/19 19:19 119/66 88 06/05/19 18:05 16 122/68 94 06/05/19 16:37 93 06/05/19 15:32 97 - Physical Examination General: No Apparent Distress HEENT: Positive: PERRL Neck: Positive: neck supple Cardiac: Positive: Reg Rate and Rhythm Lungs: Positive: Decreased Breath Sounds Neuro: Positive: Grossly Intact Abdomen: Positive: Soft Skin: Positive: Clear Extremities: Absent: edema - Labs and Meds Cardiac Enzymes 06/05/19 Range/Units 18:28 CK-MB (CK-2) 2.8 (0.0-4.0) ng/mL CBC 06/06/19 Range/Units 04:46 WBC 7.2 (4.5-11.0) K/mm3 RBC 4.64 (3.65-5.03) M/mm3 Hgb 11.1 L (11.8-15.2) gm/dl Hct 34.2 L (35.5-45.6) % Plt Count 220 (140-440) K/mm3 Comprehensive Metabolic Panel 06/06/19 06/06/19 Range/Units 04:46 12:17 Sodium 143 (137-145) mmol/L Potassium 2.7 L* D 3.0 L (3.6-5.0) mmol/L Chloride 100.6 (98-107) mmol/L Carbon Dioxide 27 (22-30) mmol/L BUN 18 (9-20) mg/dL Creatinine 1.3 (0.8-1.5) mg/dL Glucose 138 H (75-100) mg/dL Calcium 9.6 (8.4-10.2) mg/dL
[2019-06-06] MEDS: K-DUR PO SCH ×2 (17:14→22:41)
[2019-06-06] MEDS: COREG PO SCH ×2 (17:15→22:42)
[2019-06-07 05:01] LABS: Hematocrit 35.3 % (35.5-45.6); Hemoglobin 11.5 gm/dl (11.8-15.2); Mean Corpuscular HGB Conc 33 % (32-34); Mean Corpuscular Volume 74 fl (84-94); Platelet Count 235 K/mm3 (140-440); Red Blood Count 4.77 M/mm3 (3.65-5.03); Red Cell Distribution Width 17.7 % (13.2-15.2)
[2019-06-07] MEDS: NITRO-BID 2% TP SCH ×4 (05:10→17:58)
[2019-06-07 05:17] LABS: Calcium 9.4 mg/dL (8.4-10.2)
[2019-06-07] MEDS: DUONEB *Not for PRN Use IH SCH ×3 (08:20→20:42)
--- NOTE | 2019-06-07 09:11 | Progress Note ---
Assessment and Plan Acute pulmonary edema Acute systolic heart failure an echocardiogram revealed a decreased left ventricular systolic function, EF 35-40%. In addition, there is at least moderate TR and moderate pulmonary, RVSP 40 mmHg. Urinary retention Uncontrolled hypertension, improved Pleural effusion Presence of Cardiac pacemaker ([facility]) Plan: Continue medical therapy for systolic heart failure. We will get the pacemaker interrogation with [facility] today. A predischarge persantine thallium stress test will be indicated for ischemia assessment once heart failure, pleural effusion resolved. Subjective Date of service: 06/07/19 Interval history: Patient reports his breathing is better. Objective Vital Signs Temp Pulse Pulse Resp Resp BP Pulse Ox 06/07/19 08:08 98.0 F 84 16 109/69 93 06/07/19 05:10 78 113/56 06/07/19 03:19 98.0 F 49 L 22 113/56 98 06/06/19 23:45 97.0 F L 79 18 102/61 97 06/06/19 22:42 76 115/61 06/06/19 20:03 76 18 06/06/19 20:01 95 06/06/19 19:37 74 06/06/19 19:21 98.9 F 75 18 115/61 92 06/06/19 16:47 97.9 F 72 16 121/75 95 06/06/19 14:10 94 06/06/19 12:46 98.3 F 75 16 107/69 93 06/06/19 10:00 68 06/06/19 09:57 94 - Physical Examination General: No Apparent Distress HEENT: Positive: PERRL Neck: Positive: neck supple Cardiac: Positive: Other (paced) Lungs: Positive: Decreased Breath Sounds Neuro: Positive: Grossly Intact Abdomen: Positive: Soft Extremities: Absent: edema - Labs and Meds CBC 06/07/19 Range/Units 03:54 WBC 7.2 (4.5-11.0) K/mm3 RBC 4.77 (3.65-5.03) M/mm3 Hgb 11.5 L (11.8-15.2) gm/dl Hct 35.3 L (35.5-45.6) % Plt Count 235 (140-440) K/mm3 Comprehensive Metabolic Panel 06/06/19 06/07/19 Range/Units 12:17 03:54 Sodium 142 (137-145) mmol/L Potassium 3.0 L 4.0 D (3.6-5.0) mmol/L Chloride 101.1 (98-107) mmol/L Carbon Dioxide 28 (22-30) mmol/L BUN 25 H (9-20) mg/dL Creatinine 1.5 (0.8-1.5) mg/dL Glucose 151 H (75-100) mg/dL Calcium 9.4 (8.4-10.2) mg/dL
[2019-06-07] MEDS: PROCARDIA XL PO SCH (09:14)
[2019-06-07] MEDS: LASIX IV SCH (09:14)
[2019-06-07] MEDS: HEPARIN SUB-Q SCH ×2 (09:14→23:07)
[2019-06-07] MEDS: COZAAR PO SCH (09:14)
[2019-06-07] MEDS: HumuLIN R SUB-Q SCH ×4 (09:15→22:58)
[2019-06-07] MEDS: COREG PO SCH ×2 (09:15→23:01)
--- NOTE | 2019-06-07 10:40 | Progress Note ---
Assessment and Plan Assessment and plan: patient is 78 yo with BPH, hypertension, presented with shortness of breath, abdominal pain. He was seen in ED. Chest X ray revealed pulm edema, bilat pleural effusions. CT Abd hydroureteronephrosis. he was diagnosed with acute resp failure due to acute CHF and urinary retention with hydroureteronephrosis due to BPH. Parnell was inserted, 1900 cc Urine removed, started on lasix, admited. Patient evaluated by cardiology, Pulmonology. Urology . Acute resp failure due to pulmonary edema and pleural effusions Supplemental Oxygen Pulmunology following Acute systolic CHF EF 35-40% Cardiology following Lasix iv Cozaar Bilateral pleural effusion R > L Improving May be due to CHF Pulm, Cardiology following Repeat CXR in am Discussed with Pulm. If improving, cont med management, if persists may need th oracentesis Urinary retention due to BPH Parnell placed in ED Consult Urology Marked hydroureteronephosis and bladder distension on CT Abd Hydroureteronephrosis Seen by Dr. rai today. 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, [facility] Hypokalemia replace and recheck Hypertension monitor BP Full code status History Interval history: Shortness of breath, improved Abdominal pain resolved after parnell placed and urine drained Hospitalist Physical - Physical exam Narrative exam: Gen: Not in acute distress, lying in bed, HEENT: Normocephalic, atraumatic Neck: supple, no JVD Heart: S1 and S2 reg, no murmurs, rubs or gallop Lungs: Bilateral basal crackles, decreased breath sound bases Abd: soft, non tender, non distended, normal BS Ext: no edema, no clubbing, no cyanosis Neuro: Awake,alert,oriented X 3,moves all ext : Parnell catheter in - Constitutional Vitals: Temp Pulse Resp BP Pulse Ox 98.0 F 84 20 109/69 96 06/07/19 08:08 06/07/19 09:15 06/07/19 08:20 06/07/19 09:15 06/07/19 08:20 General appearance: Present: no acute distress Results - Labs CBC & Chem 7: 06/07/19 03:54 06/07/19 03:54 Labs: Laboratory Last Values WBC 7.2 K/mm3 (4.5-11.0) 06/07/19 03:54 RBC 4.77 M/mm3 (3.65-5.03) 06/07/19 03:54 Hgb 11.5 gm/dl (11.8-15.2) L 06/07/19 03:54 Hct 35.3 % (35.5-45.6) L 06/07/19 03:54 MCV 74 fl (84-94) L 06/07/19 03:54 MCH 24 pg (28-32) L 06/07/19 03:54 MCHC 33 % (32-34) 06/07/19 03:54 RDW 17.7 % (13.2-15.2) H 06/07/19 03:54 Plt Count 235 K/mm3 (140-440) 06/07/19 03:54 Lymph % (Auto) 22.8 % (13.4-35.0) 06/05/19 01:36 [place] % (Auto) 7.3 % (0.0-7.3) 06/05/19 01:36 Eos % (Auto) 1.1 % (0.0-4.3) 06/05/19 01:36 Baso % (Auto) 0.3 % (0.0-1.8) 06/05/19 01:36 Lymph # 1.8 K/mm3 (1.2-5.4) 06/05/19 01:36 [place] # 0.6 K/mm3 (0.0-0.8) 06/05/19 01:36 Eos # 0.1 K/mm3 (0.0-0.4) 06/05/19 01:36 Baso # 0.0 K/mm3 (0.0-0.1) 06/05/19 01:36 Seg Neutrophils % 68.5 % (40.0-70.0) 06/05/19 01:36 Seg Neutrophils # 5.3 K/mm3 (1.8-7.7) 06/05/19 01:36 Sodium 142 mmol/L (137-145) 06/07/19 03:54 Potassium 4.0 mmol/L (3.6-5.0) D 06/07/19 03:54 Chloride 101.1 mmol/L (98-107) 06/07/19 03:54 Carbon Dioxide 28 mmol/L (22-30) 06/07/19 03:54 17 mmol/L 06/07/19 03:54 BUN 25 mg/dL (9-20) H 06/07/19 03:54 1.5 mg/dL (0.8-1.5) 06/07/19 03:54 Estimated GFR 46 ml/min 06/07/19 03:54 17 % 06/07/19 03:54 Glucose 151 mg/dL (75-100) H 06/07/19 03:54 POC Glucose 231 (70-105) H 06/07/19 08:23 Calcium 9.4 mg/dL (8.4-10.2) 06/07/19 03:54 446 units/L (55-170) H 06/05/19 18:28 CK-MB (CK-2) 2.8 ng/mL (0.0-4.0) 06/05/19 18:28 CK-MB (CK-2) Rel Index 0.6 (0-4) 06/05/19 18:28 0.013 ng/mL (0.00-0.029) 06/05/19 18:28 NT-Pro-B Natriuret Pep 6215 pg/mL (0-900) H 06/05/19 03:00 Straw (Yellow) 06/05/19 03:30 Clear (Clear) 06/05/19 03:30 5.0 (5.0-7.0) 06/05/19 03:30 Ur Specific [place] 1.008 (1.003-1.030) 06/05/19 03:30 <15 mg/dl mg/dL (Negative) 06/05/19 03:30 50 mg/dL (Negative) 06/05/19 03:30 Neg mg/dL (Negative) 06/05/19 03:30 Neg (Negative) 06/05/19 03:30 Neg (Negative) 06/05/19 03:30 Neg (Negative) 06/05/19 03:30 < 2.0 mg/dL (<2.0) 06/05/19 03:30 Ur Leukocyte Esterase Neg (Negative) 06/05/19 03:30 < 1.0 /HPF (0.0-6.0) 06/05/19 03:30 < 1.0 /HPF (0.0-6.0) 06/05/19 03:30 U Epithel Cells (Auto) < 1.0 /HPF (0-13.0) 06/05/19 03:30 1+ /HPF (Negative) 06/05/19 03:30 Active Medications - Current Medications Current Medications: Generic Name Dose Route Start Last Admin Trade Name Freq PRN Reason Stop Dose Admin Acetaminophen 650 mg 06/05/19 07:02 Tylenol PO Q4H PRN Headache Albuterol/Ipratropium 1 ampul 06/06/19 20:00 06/07/19 08:20 Duoneb *Not For Prn Use* IH 1 ampul TIDRT [facility] Administration Carvedilol 3.125 mg 06/06/19 16:00 06/07/19 09:15 Coreg PO 3.125 mg BID [facility] Administration Dextrose 50 ml 06/05/19 07:00 D50w (25gm) Syringe IV PRN PRN Hypoglycemia Furosemide 40 mg 06/06/19 10:00 06/07/19 09:14 Lasix IV 40 mg QDAY [facility] Administration Guaifenesin 200 mg 06/05/19 19:59 06/05/19 20:15 Robitussin PO 200 mg Q4H PRN Administration Cough Heparin Sodium (Porcine) 5,000 unit 06/05/19 10:00 06/07/19 09:14 Heparin SUB-Q 5,000 unit Q12HR [facility] Administration Insulin Human Regular 0 units 06/05/19 07:30 06/07/19 09:15 Humulin R SUB-Q 2 units AC [facility] Administration Protocol Insulin Human Regular 0 units 06/05/19 22:00 06/06/19 22:43 Humulin R SUB-Q 2 units QHS [facility] Administration Protocol Losartan Potassium 100 mg 06/05/19 12:00 06/07/19 09:14 Cozaar PO 100 mg QDAY [facility] Administration Morphine Sulfate 2 mg 06/05/19 07:17 Morphine IV Q4H PRN Pain, Moderate (4-6) Nifedipine 60 mg 06/05/19 12:00 06/07/19 09:14 Procardia Xl PO 60 mg QDAY [facility] Administration Nitroglycerin 0.5 inch 06/05/19 10:00 06/07/19 09:14 Nitro-Bid 2% TP 0.5 inch QIDNTG [facility] Administration Protocol Nitroglycerin 0.4 mg 06/05/19 07:02 Nitrostat SL .Q5MIN PRN Chest Pain Ondansetron HCl 4 mg 06/05/19 07:16 Zofran IV Q8H PRN Nausea And Vomiting
--- NOTE | 2019-06-07 11:17 | Consultation ---
History of Present Illness - Reason for Consult Consult date: 06/14/19 - History of Present Illness New to our Service The patient is a 78-year-old man who is here visiting from [facility]. He has a history of chronic hypertension, admittedly poorly controlled on hydrochlorothiazide, amlodipine and losartan. He has a history of syncope and heart block, treated a year ago in [facility] with a dual chamber pacemaker. No history of coronary artery disease, myocardial infarction all previous congestive heart failure. He presents to the hospital now with shortness of breath and uncontrolled hypertension. Blood pressure was 186/105. Chest x-ray demonstrated moderate interstitial edema, moderate to large right pleural effusion. There is no chest pain, no palpitations, no syncope. ECG is interventricular paced rhythm. CT Abd - hydroureteronephosis and bladder distension parnell placed (06-05-19) parnell clear A/P urinary retention home with parnell start flomax 1qd when ok with primary service outpt urodynamics Past History Past Medical History: hypertension Past Surgical History: Other (pacemaker) Medications and Allergies Allergies Allergy/AdvReac Type Severity Reaction Status Date / Time No Known Allergies Allergy Verified 06/05/19 01:32 Active Meds: Active Medications Acetaminophen (Tylenol) 650 mg PO Q4H PRN PRN Reason: Headache Albuterol/Ipratropium (Duoneb *Not For Prn Use*) 1 ampul IH TIDRT [facility] Last Admin: 06/07/19 08:20 Dose: 1 ampul Documented by: Carvedilol (Coreg) 3.125 mg PO BID [facility] Last Admin: 06/07/19 09:15 Dose: 3.125 mg Documented by: Dextrose (D50w (25gm) Syringe) 50 ml IV PRN PRN PRN Reason: Hypoglycemia Furosemide (Lasix) 40 mg IV QDAY [facility] Last Admin: 06/07/19 09:14 Dose: 40 mg Documented by: Guaifenesin (Robitussin) 200 mg PO Q4H PRN PRN Reason: Cough Last Admin: 06/05/19 20:15 Dose: 200 mg Documented by: Heparin Sodium (Porcine) (Heparin) 5,000 unit SUB-Q Q12HR [facility] Last Admin: 06/07/19 09:14 Dose: 5,000 unit Documented by: Insulin Human Regular (Humulin R) 0 units SUB-Q [facility]; Protocol Last Admin: 06/07/19 09:15 Dose: 2 units Documented by: Insulin Human Regular (Humulin R) 0 units SUB-Q QHS [facility]; Protocol Last Admin: 06/06/19 22:43 Dose: 2 units Documented by: Losartan Potassium (Cozaar) 100 mg PO QDAY [facility] Last Admin: 06/07/19 09:14 Dose: 100 mg Documented by: Morphine Sulfate (Morphine) 2 mg IV Q4H PRN PRN Reason: Pain, Moderate (4-6) Nifedipine (Procardia Xl) 60 mg PO QDAY [facility] Last Admin: 06/07/19 09:14 Dose: 60 mg Documented by: Nitroglycerin (Nitro-Bid 2%) 0.5 inch TP QIDNTG [facility]; Protocol Last Admin: 06/07/19 09:14 Dose: 0.5 inch Documented by: Nitroglycerin (Nitrostat) 0.4 mg SL .Q5MIN PRN PRN Reason: Chest Pain Ondansetron HCl (Zofran) 4 mg IV Q8H PRN PRN Reason: Nausea And Vomiting Exam - Constitutional Vitals: Temp Pulse Resp BP Pulse Ox 98.0 F 84 20 109/69 96 06/07/19 08:08 06/07/19 09:15 06/07/19 08:20 06/07/19 09:15 06/07/19 08:20 Results - Labs CBC & Chem 7: 06/07/19 03:54 06/07/19 03:54 Labs: Abnormal lab results 06/06/19 06/06/19 06/06/19 Range/Units 11:41 12:17 16:56 Hgb (11.8-15.2) gm/dl Hct (35.5-45.6) % MCV (84-94) fl MCH (28-32) pg RDW (13.2-15.2) % Potassium 3.0 L (3.6-5.0) mmol/L BUN (9-20) mg/dL Glucose (75-100) mg/dL POC Glucose 264 H 129 H (70-105) 06/06/19 06/07/19 06/07/19 Range/Units 20:21 03:54 03:54 Hgb 11.5 L (11.8-15.2) gm/dl Hct 35.3 L (35.5-45.6) % MCV 74 L (84-94) fl MCH 24 L (28-32) pg RDW 17.7 H (13.2-15.2) % Potassium (3.6-5.0) mmol/L BUN 25 H (9-20) mg/dL Glucose 151 H (75-100) mg/dL POC Glucose 206 H (70-105) 06/07/19 Range/Units 08:23 Hgb (11.8-15.2) gm/dl Hct (35.5-45.6) % MCV (84-94) fl MCH (28-32) pg RDW (13.2-15.2) % Potassium (3.6-5.0) mmol/L BUN (9-20) mg/dL Glucose (75-100) mg/dL POC Glucose 231 H (70-105)
--- NOTE | 2019-06-07 13:40 | Progress Note ---
Assessment and Plan 06/07 pl effusions prob related to obstructive uropathy ?communication may have underlying chf as well continue current mgmt f/up clinically/xrays no need to tap today Subjective Date of service: 06/07/19 Principal diagnosis: pl effusion Interval history: 06/07 appears to be improving clinically some diuresis chart reviewed Objective Vital Signs - 12hr 06/07/19 06/07/19 06/07/19 03:19 05:10 08:08 Temperature 98.0 F 98.0 F Pulse Rate 49 L 78 84 Pulse Rate [ Anterior Bilateral Throughout] Respiratory 22 16 Rate Respiratory Rate [Anterior Bilateral Throughout] Blood Pressure 113/56 113/56 109/69 O2 Sat by Pulse 98 93 Oximetry 06/07/19 06/07/19 06/07/19 08:20 09:14 09:15 Temperature Pulse Rate 84 84 Pulse Rate [ 73 Anterior Bilateral Throughout] Respiratory Rate Respiratory 20 Rate [Anterior Bilateral Throughout] Blood Pressure 109/69 109/69 O2 Sat by Pulse 96 Oximetry 06/07/19 06/07/19 11:42 13:05 Temperature 98.4 F Pulse Rate 84 84 Pulse Rate [ Anterior Bilateral Throughout] Respiratory Rate Respiratory Rate [Anterior Bilateral Throughout] Blood Pressure 118/68 118/68 O2 Sat by Pulse 97 Oximetry Constitutional: no acute distress, alert Eyes: non-icteric ENT: oropharynx moist Neck: supple Effort: normal Ascultation: Bilateral: clear, diminished breath sounds (base) Percussion: Bilateral: not dull Tactile fremitus: Bilateral: normal Cardiovascular: regular rate and rhythm Gastrointestinal: normoactive bowel sounds, soft, non-tender Extremities: no edema Neurologic: normal mental status CBC and BMP: 06/07/19 03:54 06/07/19 03:54 Abnormal lab findings: Abnormal Labs 06/05/19 06/05/19 06/05/19 01:36 01:36 03:00 Hgb 10.9 L Hct 34.0 L MCV 75 L MCH 24 L RDW 18.3 H Potassium BUN Glucose 291 H POC Glucose Total Creatine Kinase 438 H NT-Pro-B Natriuret Pep 6215 H 06/05/19 06/05/19 06/05/19 10:17 12:23 16:42 Hgb Hct MCV MCH RDW Potassium BUN Glucose POC Glucose 303 H 276 H Total Creatine Kinase 487 H NT-Pro-B Natriuret Pep 06/05/19 06/05/19 06/06/19 18:28 21:04 04:46 Hgb 11.1 L Hct 34.2 L MCV 74 L MCH 24 L RDW 17.8 H Potassium BUN Glucose POC Glucose 259 H Total Creatine Kinase 446 H NT-Pro-B Natriuret Pep 06/06/19 06/06/19 06/06/19 04:46 08:01 11:41 Hgb Hct MCV MCH RDW Potassium 2.7 L* D BUN Glucose 138 H POC Glucose 155 H 264 H Total Creatine Kinase NT-Pro-B Natriuret Pep 06/06/19 06/06/19 06/06/19 12:17 16:56 20:21 Hgb Hct MCV MCH RDW Potassium 3.0 L BUN Glucose POC Glucose 129 H 206 H Total Creatine Kinase NT-Pro-B Natriuret Pep 06/07/19 06/07/19 06/07/19 03:54 03:54 08:23 Hgb 11.5 L Hct 35.3 L MCV 74 L MCH 24 L RDW 17.7 H Potassium BUN 25 H Glucose 151 H POC Glucose 231 H Total Creatine Kinase NT-Pro-B Natriuret Pep 06/07/19 11:46 Hgb Hct MCV MCH RDW Potassium BUN Glucose POC Glucose 263 H Total Creatine Kinase NT-Pro-B Natriuret Pep Chest x-ray: image reviewed (some improvement still bilat effusions)
[2019-06-07] MEDS: FLOMAX PO SCH (15:32)
[2019-06-07] MEDS: ROBITUSSIN PO PRN (18:06)
[2019-06-08 05:31] LABS: Hematocrit 35.6 % (35.5-45.6); Hemoglobin 11.5 gm/dl (11.8-15.2); Mean Corpuscular HGB Conc 32 % (32-34); Mean Corpuscular Volume 74 fl (84-94); Platelet Count 221 K/mm3 (140-440); Red Blood Count 4.79 M/mm3 (3.65-5.03); Red Cell Distribution Width 18.5 % (13.2-15.2)
[2019-06-08 05:42] LABS: Calcium 9.2 mg/dL (8.4-10.2)
[2019-06-08] MEDS: NITRO-BID 2% TP SCH ×4 (06:28→17:25)
[2019-06-08] MEDS: DUONEB *Not for PRN Use IH SCH ×3 (07:58→20:08)
--- NOTE | 2019-06-08 08:38 | XRay Report ---
CHEST 1 VIEW 0747 INDICATION / CLINICAL INFORMATION: Pleural effusion. COMPARISON: 06/06/2019 FINDINGS: SUPPORT DEVICES: Pacer appears unchanged. HEART / MEDIASTINUM: No significant abnormality. LUNGS / PLEURA: The right pleural effusion seen previously is no longer obvious. No areas of consolid ation are seen. No pneumothorax. ADDITIONAL FINDINGS: No significant additional findings. IMPRESSION: Apparent resolution of right pleural effusion Signer Name: Karan Negro MD Signed: 06/08/2019 8:34 AM Workstation Name: [id number]
[2019-06-08] MEDS: HEPARIN SUB-Q SCH (09:11)
[2019-06-08] MEDS: LASIX IV SCH (09:11)
[2019-06-08] MEDS: PROCARDIA XL PO SCH (09:11)
[2019-06-08] MEDS: COZAAR PO SCH (09:12)
[2019-06-08] MEDS: FLOMAX PO SCH (09:12)
[2019-06-08] MEDS: COREG PO SCH ×2 (09:12→23:21)
[2019-06-08] MEDS: HumuLIN R SUB-Q SCH ×4 (09:12→23:22)
--- NOTE | 2019-06-08 10:55 | Progress Note ---
Assessment and Plan Acute pulmonary edema Acute systolic heart failure an echocardiogram revealed a decreased left ventricular systolic function, EF 35-40%. In addition, there is at least moderate TR and moderate pulmonary, RVSP 40 mmHg. Urinary retention Uncontrolled hypertension, improved Pleural effusion Presence of Cardiac pacemaker ([employer]) interrogation reports a normal function but detection of atrial fibrillation all on 05/28/19. Paroxysmal Afib on Xarelto as per family member Continue medical therapy for systolic heart failure. Resume Xarelto for paroxysmal Afib. For predischarge Persantine thallium stress test on . Subjective Date of service: 06/08/19 Principal diagnosis: pl effusion Interval history: Patient reports his breathing is better. He has no complaints. BP is stable. Family members at the bedside. Objective Vital Signs Temp Pulse Pulse Resp Resp BP Pulse Ox 06/08/19 09:12 115/75 06/08/19 09:11 115/75 06/08/19 08:29 98.0 F 89 18 115/75 96 06/08/19 07:58 86 20 95 06/08/19 06:28 77 114/67 06/08/19 05:20 97.9 F 06/08/19 05:16 77 18 114/67 95 06/07/19 23:54 97.4 F L 80 18 114/68 98 06/07/19 23:01 83 112/63 06/07/19 20:42 77 20 94 06/07/19 19:49 80 06/07/19 19:47 97.5 F L 06/07/19 19:44 83 18 112/63 96 06/07/19 17:58 80 114/68 06/07/19 16:15 97.9 F 80 18 114/68 100 06/07/19 13:45 71 20 06/07/19 13:05 84 118/68 06/07/19 11:42 98.4 F 84 118/68 97 - Physical Examination General: No Apparent Distress HEENT: Positive: PERRL Neck: Positive: neck supple Cardiac: Positive: Other (paced) Lungs: Positive: Decreased Breath Sounds Neuro: Positive: Grossly Intact Abdomen: Positive: Soft Extremities: Absent: edema - Labs and Meds CBC 06/08/19 Range/Units 04:42 WBC 6.4 (4.5-11.0) K/mm3 RBC 4.79 (3.65-5.03) M/mm3 Hgb 11.5 L (11.8-15.2) gm/dl Hct 35.6 (35.5-45.6) % Plt Count 221 (140-440) K/mm3 Comprehensive Metabolic Panel 06/08/19 Range/Units 04:42 Sodium 137 (137-145) mmol/L Potassium 3.7 (3.6-5.0) mmol/L Chloride 97.1 L (98-107) mmol/L Carbon Dioxide 29 (22-30) mmol/L BUN 13 (9-20) mg/dL Creatinine 1.3 (0.8-1.5) mg/dL Glucose 244 H (75-100) mg/dL Calcium 9.2 (8.4-10.2) mg/dL
--- NOTE | 2019-06-08 10:59 | Progress Note ---
Assessment and Plan 06/07 pl effusions prob related to obstructive uropathy ?communication may have underlying chf as well continue current mgmt f/up clinically/xrays no need to tap today 06/08. clinically and radiographically improved no need for thora OK for d/c pulm hendrix Subjective Principal diagnosis: pl effusion Interval history: 06/07 appears to be improving clinically Objective Vital Signs - 12hr 06/07/19 06/07/19 06/08/19 23:01 23:54 05:16 Temperature 97.4 F L Pulse Rate 83 80 77 Pulse Rate [ Anterior Bilateral Throughout] Respiratory 18 18 Rate Respiratory Rate [Anterior Bilateral Throughout] Blood Pressure 112/63 114/68 114/67 O2 Sat by Pulse 98 95 Oximetry 06/08/19 06/08/19 06/08/19 05:20 06:28 07:58 Temperature 97.9 F Pulse Rate 77 Pulse Rate [ 86 Anterior Bilateral Throughout] Respiratory Rate Respiratory 20 Rate [Anterior Bilateral Throughout] Blood Pressure 114/67 O2 Sat by Pulse 95 Oximetry 06/08/19 06/08/19 06/08/19 08:29 09:11 09:12 Temperature 98.0 F Pulse Rate 89 Pulse Rate [ Anterior Bilateral Throughout] Respiratory 18 Rate Respiratory Rate [Anterior Bilateral Throughout] Blood Pressure 115/75 115/75 115/75 O2 Sat by Pulse 96 Oximetry Constitutional: no acute distress, alert Eyes: non-icteric ENT: oropharynx moist Neck: supple Effort: normal Ascultation: Bilateral: clear, diminished breath sounds (minimal at R base ) Percussion: Bilateral: not dull Tactile fremitus: Bilateral: normal Cardiovascular: regular rate and rhythm Gastrointestinal: normoactive bowel sounds, soft, non-tender Extremities: no edema Neurologic: normal mental status CBC and BMP: 06/08/19 04:42 06/08/19 04:42 Abnormal lab findings: Abnormal Labs 06/05/19 06/05/19 06/05/19 01:36 01:36 03:00 Hgb 10.9 L Hct 34.0 L MCV 75 L MCH 24 L RDW 18.3 H Potassium Chloride BUN Glucose 291 H POC Glucose Total Creatine Kinase 438 H NT-Pro-B Natriuret Pep 6215 H 06/05/19 06/05/19 06/05/19 10:17 12:23 16:42 Hgb Hct MCV MCH RDW Potassium Chloride BUN Glucose POC Glucose 303 H 276 H Total Creatine Kinase 487 H NT-Pro-B Natriuret Pep 06/05/19 06/05/19 06/06/19 18:28 21:04 04:46 Hgb 11.1 L Hct 34.2 L MCV 74 L MCH 24 L RDW 17.8 H Potassium Chloride BUN Glucose POC Glucose 259 H Total Creatine Kinase 446 H NT-Pro-B Natriuret Pep 06/06/19 06/06/19 06/06/19 04:46 08:01 11:41 Hgb Hct MCV MCH RDW Potassium 2.7 L* D Chloride BUN Glucose 138 H POC Glucose 155 H 264 H Total Creatine Kinase NT-Pro-B Natriuret Pep 06/06/19 06/06/19 06/06/19 12:17 16:56 20:21 Hgb Hct MCV MCH RDW Potassium 3.0 L Chloride BUN Glucose POC Glucose 129 H 206 H Total Creatine Kinase NT-Pro-B Natriuret Pep 06/07/19 06/07/19 06/07/19 03:54 03:54 08:23 Hgb 11.5 L Hct 35.3 L MCV 74 L MCH 24 L RDW 17.7 H Potassium Chloride BUN 25 H Glucose 151 H POC Glucose 231 H Total Creatine Kinase NT-Pro-B Natriuret Pep 06/07/19 06/07/19 06/07/19 11:46 16:20 21:47 Hgb Hct MCV MCH RDW Potassium Chloride BUN Glucose POC Glucose 263 H 261 H 178 H Total Creatine Kinase NT-Pro-B Natriuret Pep 06/08/19 06/08/19 06/08/19 04:42 04:42 07:56 Hgb 11.5 L Hct MCV 74 L MCH 24 L RDW 18.5 H Potassium Chloride 97.1 L BUN Glucose 244 H POC Glucose 204 H Total Creatine Kinase NT-Pro-B Natriuret Pep Chest x-ray: image reviewed (06/08. cleared R pl effusion)
--- NOTE | 2019-06-08 12:58 | Discharge Summary ---
Providers - Providers Date of Admission: 06/05/19 06:56 Date of discharge: 06/08/19 Attending physician: KAELYN MCKAY 06/05/19 06:58 Consult to Physician [CONS] Routine Comment: Consulting Provider: BARBARA GOODWIN Physician Instructions: Reason For Exam: CHF, WITH HISTORY OF PACEMAKER 06/05/19 16:06 Consult to Physician [CONS] Routine Comment: Consulting Provider: CHEN ZENG Physician Instructions: Reason For Exam: Pleural effusion 06/07/19 07:32 Consult to Physician [CONS] Routine Comment: Consulting Provider: SAVANNAH MANRIQUE Physician Instructions: Reason For Exam: Urinary retention, hydronephrosis [facility] Condition: Good Pertinent studies: Chest x-ray bilateral pleural effusions. CT scan abdomen urinary retention with hydronephrosis Hospital course: Patient 78-year-old admitted with Chief complaint of abdominal pain shortness of breath. Initially thought maybe secondary to congestive heart failure. Patient was placed on chest pain protocol obtain echocardiogram showed ejection fraction of 40% placed on Lasix Cozaar. Patient's CT scan also showed urinary retention with hydronephrosis. Patient had a Francois catheter placed and pleural effusion resolved therefore secondary to urinary retention. Patient will be discharged home with Francois daughter aware. Hospital course also complicated by uncontrolled diabetes patient is on metformin twice a day at 500 mg. We'll increase to 850 mg twice a day and follow up with primary care physician. Disposition: TO HOME OR SELFCARE - Discharge Diagnoses (1) Acute pulmonary edema Status: Acute Comment: Was not secondary to congestive heart failure. Secondary to hydronephrosis BPH. Improved with catheterization Francois catheterization. (2) Cardiac pacemaker Status: Chronic (3) Hydroureteronephrosis Status: Acute Comment: Patient placed on Flomax antibiotic and follow-up with Dr. Manrique 3-5 days. (4) Pleural effusion Status: Resolved (5) Prostatic hypertrophy Status: Acute (6) Uncontrolled hypertension Status: Acute Comment: Patient has optimal control blood pressure. Norvasc wa s given when necessary (7) Diabetes Status: Acute Comment: We'll increase metformin to 850 twice a day at home. A1c was 8.3 so is fair but not optimal control for 78-year-old male. Core Measure Documentation - Palliative Care Palliative Care/ Comfort Measures: Not Applicable - Core Measures Any of the following diagnoses?: none Exam - Constitutional Vitals: Temp Pulse Resp BP Pulse Ox 97.9 F 86 18 118/71 97 06/08/19 11:52 06/08/19 11:52 06/08/19 11:52 06/08/19 11:52 06/08/19 11:52 General appearance: Present: no acute distress, well-nourished - EENT Eyes: Present: PERRL ENT: hearing intact, clear oral mucosa - Neck Neck: Present: supple, normal ROM - Respiratory Respiratory effort: normal Respiratory: bilateral: CTA - Cardiovascular Heart Sounds: Present: S1 & S2. Absent: rub, click - Extremities Extremities: pulses symmetrical, No edema Peripheral Pulses: within normal limits - Abdominal General gastrointestinal: Present: soft, non-tender, non-distended, normal bowel sounds Male genitourinary: Present: normal - Integumentary Integumentary: Present: clear, warm, dry - Musculoskeletal Musculoskeletal: gait normal, strength equal bilaterally - Psychiatric Psychiatric: appropriate mood/affect, intact judgment & insight - Neurologic Neurologic: CNII-XII intact, moves all extremities Plan Activity: advance as tolerated Weight Bearing Status: Weight Bear as Tolerated Diet: diabetic Wound: other (soraya anne as per discharge nurse) Follow up with: JOIE SMITH MD [Primary Care Provider] - 7 Days Prescriptions: Carvedilol [Coreg] 3.125 mg PO BID #30 tablet Losartan [Cozaar] 100 mg PO QDAY #30 tablet Tamsulosin [Flomax] 0.4 mg PO QDAY #30 capsule hydroCHLOROthiazide [HCTZ] 12.5 mg PO QDAY #30 capsule AtorvaSTATin [Lipitor] 20 mg PO QHS #30 tablet Metformin HCl [metFORMIN] 850 mg PO BID #60 tablet NIFEdipine XL [Procardia Xl] 60 mg PO QDAY #30 tablet Rivaroxaban [Xarelto] 20 mg PO QDAY #30 tablet
[2019-06-09] MEDS: NITRO-BID 2% TP SCH ×4 (06:49→18:05)
[2019-06-09] MEDS: HumuLIN R SUB-Q SCH ×4 (08:00→23:10)
[2019-06-09] MEDS: DUONEB *Not for PRN Use IH SCH ×3 (08:22→19:55)
--- NOTE | 2019-06-09 08:56 | Progress Note ---
Assessment and Plan Acute pulmonary edema Acute systolic heart failure an echocardiogram revealed a decreased left ventricular systolic function, EF 35-40%. In addition, there is at least moderate TR and moderate pulmonary, RVSP 40 mmHg. Urinary retention Uncontrolled hypertension, improved Pleural effusion Presence of Cardiac pacemaker ([employer]) interrogation reports a normal function but detection of atrial fibrillation all on 05/28/19. Paroxysmal Afib on Xarelto as per family member Continue medical therapy for systolic heart failure and paroxysmal Afib. For predischarge Persantine thallium stress test on . Subjective Date of service: 06/09/19 Principal diagnosis: pl effusion Interval history: Patient reports his breathing is better. He has no complaints. Objective Vital Signs Temp Pulse Pulse Resp Resp BP Pulse Ox 06/09/19 08:00 84 18 06/09/19 06:49 84 98/56 06/09/19 04:01 98.0 F 84 16 98/56 94 06/08/19 23:21 98.0 F 92 H 16 113/67 96 06/08/19 22:00 95 06/08/19 19:37 99.1 F 88 16 113/69 97 06/08/19 19:06 82 06/08/19 17:25 85 109/65 06/08/19 16:28 97.9 F 85 18 109/65 98 06/08/19 13:44 84 18 06/08/19 13:21 118/71 06/08/19 11:52 97.9 F 86 18 118/71 97 06/08/19 10:00 79 06/08/19 09:12 115/75 06/08/19 09:11 115/75 - Physical Examination General: No Apparent Distress HEENT: Positive: PERRL Neck: Positive: neck supple Cardiac: Positive: Other (paced) Lungs: Positive: Decreased Breath Sounds Neuro: Positive: Grossly Intact Abdomen: Positive: Soft Extremities: Absent: edema
[2019-06-09] MEDS: XARELTO PO SCH (10:29)
[2019-06-09] MEDS: COREG PO SCH ×2 (10:29→21:38)
[2019-06-09] MEDS: COZAAR PO SCH (10:29)
[2019-06-09] MEDS: FLOMAX PO SCH (10:29)
[2019-06-09] MEDS: PROCARDIA XL PO SCH (10:30)
[2019-06-09] MEDS: LASIX IV SCH (10:30)
--- NOTE | 2019-06-09 20:37 | Progress Note ---
Assessment and Plan - Patient Problems (1) Acute pulmonary edema Current Visit: Yes Status: Acute Plan to address problem: Acute pulmonary edema has resolved secondary to obstructive uropathy. (2) Cardiac pacemaker Current Visit: Yes Status: Chronic Plan to address problem: She pacemaker was interrogated and showed episodes of afebrile. Patient awaiting stress thallium tomorrow. If normal may be discharged. (3) Hydroureteronephrosis Current Visit: Yes Status: Acute Plan to address problem: Patient has follow-up with Dr. Manrique after discharge. Urology. Plan is to leave the catheter in until the follow-up with Dr. Manrique. (4) Pleural effusion Current Visit: Yes Status: Resolved Plan to address problem: Pleural effusion resolved was secondary to obstructive uropathy and not congestive heart failure. (5) Prostatic hypertrophy Current Visit: Yes Status: Acute Plan to address problem: To continue Flomax Levaquin discharged to Dr. Manrique outpatient follow-up. Should be able to be discharged after stress thal negative. (6) Uncontrolled hypertension Current Visit: Yes Status: Acute Plan to address problem: She now has optimal control on Coreg and losartan. (7) Diabetes Current Visit: Yes Status: Acute Plan to address problem: A she currently has Control of blood sugars. Continue present management sliding-scale. (8) Atrial fibrillation Current Visit: Yes Status: Acute Plan to address problem: He has been well controlled and in fact has been regular now. On elaquis History Interval history: Patient without any new concerns today. Hospital course unremarkable. No chest pain no flank pain. Urine flowing E stable no blood. Awaiting stress test in a.m. Hospitalist Physical - Constitutional Vitals: Temp Pulse Resp BP Pulse Ox 97.7 F 84 18 114/68 96 06/09/19 17:02 06/09/19 17:02 06/09/19 17:02 06/09/19 17:02 06/09/19 17:02 General appearance: Present: no acute distress, well-nourished - EENT Eyes: Present: PERRL, EOM intact ENT: hearing intact, clear oral mucosa, dentition normal, no oropharyngeal erythema, no poor dentition, no thrush - Neck Neck: Present: supple, normal ROM. Absent: enlarged thyroid, masses or JVD, cervical LAD - Respiratory Respiratory: bilateral: CTA - Cardiovascular Rhythm: irregularly irregular - Extremities Extremities: no ischemia, pulses intact, pulses symmetrical, No edema, normal temperature, normal color, Full ROM Peripheral Pulses: within normal limits - Abdominal General gastrointestinal: soft, non-tender, non-distended, normal bowel sounds - Integumentary Integumentary: Present: clear, warm, dry - Psychiatric Psychiatric: appropriate mood/affect - Neurologic Neurologic: CNII-XII intact, no focal deficits, moves all extremities Results - Labs CBC & Chem 7: 06/08/19 04:42 06/08/19 04:42 Labs: Laboratory Last Values WBC 6.4 K/mm3 (4.5-11.0) 06/08/19 04:42 RBC 4.79 M/mm3 (3.65-5.03) 06/08/19 04:42 Hgb 11.5 gm/dl (11.8-15.2) L 06/08/19 04:42 Hct 35.6 % (35.5-45.6) 06/08/19 04:42 MCV 74 fl (84-94) L 06/08/19 04:42 MCH 24 pg (28-32) L 06/08/19 04:42 MCHC 32 % (32-34) 06/08/19 04:42 RDW 18.5 % (13.2-15.2) H 06/08/19 04:42 Plt Count 221 K/mm3 (140-440) 06/08/19 04:42 Lymph % (Auto) 22.8 % (13.4-35.0) 06/05/19 01:36 Mcleod % (Auto) 7.3 % (0.0-7.3) 06/05/19 01:36 Eos % (Auto) 1.1 % (0.0-4.3) 06/05/19 01:36 Baso % (Auto) 0.3 % (0.0-1.8) 06/05/19 01:36 Lymph # 1.8 K/mm3 (1.2-5.4) 06/05/19 01:36 Mcleod # 0.6 K/mm3 (0.0-0.8) 06/05/19 01:36 Eos # 0.1 K/mm3 (0.0-0.4) 06/05/19 01:36 Baso # 0.0 K/mm3 (0.0-0.1) 06/05/19 01:36 Seg Neutrophils % 68.5 % (40.0-70.0) 06/05/19 01:36 Seg Neutrophils # 5.3 K/mm3 (1.8-7.7) 06/05/19 01:36 Sodium 137 mmol/L (137-145) 06/08/19 04:42 Potassium 3.7 mmol/L (3.6-5.0) 06/08/19 04:42 Chloride 97.1 mmol/L (98-107) L 06/08/19 04:42 Carbon Dioxide 29 mmol/L (22-30) 06/08/19 04:42 15 mmol/L 06/08/19 04:42 BUN 13 mg/dL (9-20) 06/08/19 04:42 1.3 mg/dL (0.8-1.5) 06/08/19 04:42 Estimated GFR 54 ml/min 06/08/19 04:42 10 % 06/08/19 04:42 Glucose 244 mg/dL (75-100) H 06/08/19 04:42 POC Glucose 272 (70-105) H 06/09/19 17:07 8.3 % (4-6) H 06/08/19 04:42 Calcium 9.2 mg/dL (8.4-10.2) 06/08/19 04:42 446 units/L (55-170) H 06/05/19 18:28 CK-MB (CK-2) 2.8 ng/mL (0.0-4.0) 06/05/19 18:28 CK-MB (CK-2) Rel Index 0.6 (0-4) 06/05/19 18:28 0.013 ng/mL (0.00-0.029) 06/05/19 18:28 NT-Pro-B Natriuret Pep 6215 pg/mL (0-900) H 06/05/19 03:00 Straw (Yellow) 06/05/19 03:30 Clear (Clear) 06/05/19 03:30 5.0 (5.0-7.0) 06/05/19 03:30 Ur Specific [place] 1.008 (1.003-1.030) 06/05/19 03:30 <15 mg/dl mg/dL (Negative) 06/05/19 03:30 50 mg/dL (Negative) 06/05/19 03:30 Neg mg/dL (Negative) 06/05/19 03:30 Neg (Negative) 06/05/19 03:30 Neg (Negative) 06/05/19 03:30 Neg (Negative) 06/05/19 03:30 < 2.0 mg/dL (<2.0) 06/05/19 03:30 Ur Leukocyte Esterase Neg (Negative) 06/05/19 03:30 < 1.0 /HPF (0.0-6.0) 06/05/19 03:30 < 1.0 /HPF (0.0-6.0) 06/05/19 03:30 U Epithel Cells (Auto) < 1.0 /HPF (0-13.0) 06/05/19 03:30 1+ /HPF (Negative) 06/05/19 03:30 Active Medications - Current Medications Current Medications: Generic Name Dose Route Start Last Admin Trade Name Freq PRN Reason Stop Dose Admin Acetaminophen 650 mg 06/05/19 07:02 Tylenol PO Q4H PRN Headache Albuterol/Ipratropium 1 ampul 06/06/19 20:00 06/09/19 19:55 Duoneb *Not For Prn Use* IH 1 ampul TIDRT BAIRON Administration Atorvastatin Calcium 20 mg 06/07/19 22:00 06/08/19 23:20 Lipitor PO 20 mg QHS BAIRON Administration Carvedilol 3.125 mg 06/06/19 16:00 06/09/19 10:29 Coreg PO 3.125 mg BID BAIRON Administration Dextrose 50 ml 06/05/19 07:00 D50w (25gm) Syringe IV PRN PRN Hypoglycemia Furosemide 40 mg 06/06/19 10:00 06/09/19 10:30 Lasix IV 40 mg QDAY BAIRON Administration Guaifenesin 200 mg 06/05/19 19:59 06/07/19 18:06 Robitussin PO 200 mg Q4H PRN Administration Cough Insulin Human Regular 0 units 06/05/19 07:30 06/09/19 18:05 Humulin R SUB-Q 3 units AC BAIRON Administration Protocol Insulin Human Regular 0 units 06/05/19 22:00 06/08/19 23:22 Humulin R SUB-Q 1 units QHS BAIRON Administration Protocol Losartan Potassium 100 mg 06/05/19 12:00 06/09/19 10:29 Cozaar PO 100 mg QDAY BAIRON Administration Morphine Sulfate 2 mg 06/05/19 07:17 Morphine IV Q4H PRN Pain, Moderate (4-6) Nifedipine 60 mg 06/05/19 12:00 06/09/19 10:30 Procardia Xl PO 60 mg QDAY BAIRON Administration Nitroglycerin 0.5 inch 06/05/19 10:00 06/09/19 18:05 Nitro-Bid 2% TP 0.5 inch QIDNTG [facility] Administration Protocol Nitroglycerin 0.4 mg 06/05/19 07:02 Nitrostat SL .Q5MIN PRN Chest Pain Ondansetron HCl 4 mg 06/05/19 07:16 Zofran IV Q8H PRN Nausea And Vomiting Rivaroxaban 20 mg 06/09/19 10:00 06/09/19 10:29 Xarelto PO 20 mg QDAY BAIRON Administration Protocol Tamsulosin HCl 0.4 mg 06/07/19 14:00 06/09/19 10:29 Flomax PO 0.4 mg QDAY BAIRON Administration
[2019-06-09] MEDS ORDERED: MILK OF MAGNESIA PO PRN (21:24)
[2019-06-10] MEDS: NITRO-BID 2% TP SCH ×3 (07:45→13:36)
[2019-06-10] MEDS: DUONEB *Not for PRN Use IH SCH (07:48)
[2019-06-10] MEDS ORDERED: LEXISCAN IV ONE ×2 (07:52→08:00)
--- NOTE | 2019-06-10 10:16 | Discharge Summary ---
Providers - Providers Date of Admission: 06/05/19 06:56 Date of discharge: 06/10/19 Attending physician: MARTHA BIRD 06/05/19 06:58 Consult to Physician [CONS] Routine Comment: Consulting Provider: BARBARA GOODWIN Physician Instructions: Reason For Exam: CHF, WITH HISTORY OF PACEMAKER 06/05/19 16:06 Consult to Physician [CONS] Routine Comment: Consulting Provider: CHEN ZENG Physician Instructions: Reason For Exam: Pleural effusion 06/07/19 07:32 Consult to Physician [CONS] Routine Comment: Consulting Provider: SAVANNAH VELIZ Physician Instructions: Reason For Exam: Urinary retention, hydronephrosis [facility] Hospital[facility] Condition: Good Hospital course: 78-year-old admitted with Chief complaint of abdominal pain shortness of breath. Initially thought maybe secondary to congestive heart failure. Patient was placed on chest pain protocol obtain echocardiogram showed ejection fraction of 40% placed on Lasix Cozaar. Patient's CT scan also showed urinary retention with hydronephrosis. Patient had a Francois catheter placed and pleural effusion resolved. Cardiology wanted to perform predischarge Persantine thallium. If the test is negative, patient will discharge home. Hospital course also complicated by uncontrolled diabetes patient is on metformin twice a day at 500 mg. We'll increase to 850 mg twice a day and follow up with primary care physician. Dedicated discharge time 32 minutes. Disposition: DC- TO HOME OR SELFCARE Core Measure Documentation - Palliative Care Palliative Care/ Comfort Measures: Not Applicable - Core Measures Any of the following diagnoses?: heart failure - Heart Failure Discharge Requirements FREDO/ARB for LVSD if EF <40%: Yes Beta layton at discharge: Yes Exam - Constitutional Vitals: Temp Pulse Resp BP Pulse Ox 98.0 F 82 16 102/58 94 06/10/19 07:42 06/10/19 07:48 06/10/19 07:48 06/10/19 07:42 06/10/19 07:58 General appearance: Present: no acute distress, well-nourished - EENT Eyes: Present: PERRL ENT: hearing intact, clear oral mucosa - Neck Neck: Present: supple, normal ROM - Respiratory Respiratory effort: normal Respiratory: bilateral: CTA - Cardiovascular Heart Sounds: Present: S1 & S2. Absent: rub, click - Extremities Extremities: pulses symmetrical, No edema Peripheral Pulses: within normal limits - Abdominal General gastrointestinal: Present: soft, non-tender, non-distended, normal bowel sounds Male genitourinary: Present: normal - Integumentary Integumentary: Present: clear, warm, dry - Musculoskeletal Musculoskeletal: gait normal, strength equal bilaterally - Psychiatric Psychiatric: appropriate mood/affect, intact judgment & insight - Neurologic Neurologic: CNII-XII intact, moves all extremities Plan Activity: advance as tolerated Weight Bearing Status: Weight Bear as Tolerated Diet: low fat, low cholesterol, low salt Follow up with: SALAZAR ALEXANDRAARCADE MD LANDON [Primary Care Provider] - 7 Days SAVANNAH VELIZ MD [Staff Physician] - 7 Days DANIELA NICHOLAS MD [Staff Physician] - 7 Days COURTNEY SWAIN MD [Staff Physician] - 7 Days Prescriptions: Carvedilol [Coreg] 3.125 mg PO BID #30 tablet Losartan [Cozaar] 100 mg PO QDAY #30 tablet Tamsulosin [Flomax] 0.4 mg PO QDAY #30 capsule hydroCHLOROthiazide [HCTZ] 12.5 mg PO QDAY #30 capsule levoFLOXacin [Levaquin TAB] 500 mg PO QDAY #7 tablet AtorvaSTATin [Lipitor] 20 mg PO QHS #30 tablet Metformin HCl [metFORMIN] 850 mg PO BID #60 tablet NIFEdipine XL [Procardia Xl] 60 mg PO QDAY #30 tablet Rivaroxaban [Xarelto] 20 mg PO QDAY #30 tablet
[2019-06-10 12:43] VITALS: BP 98/67
[2019-06-10] MEDS: LASIX IV SCH (13:04)
[2019-06-10] MEDS: XARELTO PO SCH (13:04)
[2019-06-10] MEDS: FLOMAX PO SCH (13:04)
[2019-06-10] MEDS: HumuLIN R SUB-Q SCH ×2 (13:12→13:36)
[2019-06-10] MEDS: COREG PO SCH (13:15)
[2019-06-10] MEDS: COZAAR PO SCH (13:16)
[2019-06-10] MEDS: PROCARDIA XL PO SCH (13:16)
--- NOTE | 2019-06-10 14:36 | Event Note ---
Date: 06/10/19 Patient underwent Lexiscan thallium stress test, shows normal perfusion, with underlying mild nonischemic cardiomyopathy. Left ventricular ejection fraction was 44% by gated SPECT analysis. Patient is stable for cardiac discharge on guideline directed medical therapy as previously outlined.
--- NOTE | 2019-06-11 00:12 | Treadmill Report ---
THALLIUM STRESS TEST LEFT VENTRICLE: Left ventricular chamber size is within normal spread. Perfusion study demonstrates homogeneous uptake of the tracer in all segments. Gated analysis demonstrates mild left ventricular systolic dysfunction with ejection fraction calculated at 44%. CONCLUSION: Evidence of mild dilated nonischemic cardiomyopathy. No ischemic defects on thallium perfusion imaging. Clinical correlation is recommended. JOB# [id number] CA/NTS
== END 2019-06-10 16:38 | disposition home or self-care (01) | DRG 291 ==
LOC: ED 01:06 → SUATTDRO 01:06 → 4A 06:56
PROVIDERS: ADMIT Internal Medicine; ATTEND Hospitalist
PROC: 5A09357 Assistance with Respiratory Ventilation, Less than 24 Consecutive Hours, Continuous Positive Airway Pressure (ICD-10-PCS; 2019-06-05)
PROC: 3E0234Z Introduction of Serum, Toxoid and Vaccine into Muscle, Percutaneous Approach (ICD-10-PCS; principal; 2019-06-06)
DX: I11.0 Hypertensive heart disease with heart failure (principal); J96.00 Acute respiratory failure, unspecified whether with hypoxia or hypercapnia; N13.30 Unspecified hydronephrosis; J90 Pleural effusion, not elsewhere classified; N13.8 Other obstructive and reflux uropathy; E11.9 Type 2 diabetes mellitus without complications; N40.1 Benign prostatic hyperplasia with lower urinary tract symptoms; R33.8 Other retention of urine; I48.0 Paroxysmal atrial fibrillation; E87.6 Hypokalemia; I50.23 Acute on chronic systolic (congestive) heart failure; Z95.0 Presence of cardiac pacemaker; Z85.46 Personal history of malignant neoplasm of prostate; Z23 Encounter for immunization
CPT/HCPCS: 36415; 71045; 74176; 78452; 80048; 81001; 82550; 82553; 82962; 83036; 83880; 84132; 84484; 85025; 85027; 87116; 90732; 93005; 93010; 93017; 93306; 94640; 94644; 94760; G0378; A9270-GY; A9502; J1644; J1815; J1940; J2785; J3480